=== PATIENT | female | born 1990 ===

== ENCOUNTER → 2024-11-18 | Outpatient (CLI) | payer BC ==
[2024-11-18 09:31] LABS: Urine Bacteria None Seen /hpf (None Seen)
[2024-11-18 10:28] LABS: Basophils # (auto) 0 10 ^3/uL (0-0.2); Basophils % (auto) 0.8 % (0.0-2.0); Eosinophils # (auto) 0 10 ^3/uL (0-0.8); Eosinophils % (auto) 0.9 % (0.0-7.0); Hematocrit 41.9 % (36.0-46.0); Hemoglobin 14.2 g/dL (12.2-16.2); Lymphocytes # (auto) 1.5 10 ^3/uL (0.4-5.4); Lymphocytes % (auto) 33.8 % (10.0-50.0); Mean Corpuscular Hemoglobin 31.6 pg (28.0-32.0); Mean Corpuscular Hgb Conc. 33.9 g/dL (32.0-36.0); Mean Corpuscular Volume 93.4 fL (80.0-100.0); Monocytes # (auto) 0.3 10 ^3/uL (0-1.3); Monocytes % (auto) 5.9 % (0.0-12.0); Neutrophils # (auto) 2.5 10 ^3/uL (1.6-8.6); Neutrophils % (auto) 58.6 % (37.0-80.0); Platelet Count (auto) 256 10^3/uL (140-450); Red Blood Cells 4.48 10^6/uL (4.0-5.20); Red Cell Distribution Width 12.8 % (11.8-14.3); White Blood Cell 4.3 10^3/uL (4.4-10.8)
[2024-11-18 11:05] LABS: Urine Blood 2+ /uL (Negative); Urine Clarity Clear (Clear); Urine Color Yellow (Yellow); Urine Mucus FEW (None Seen); Urine Protein, UAD Negative (Negative); Urine Specific Gravity 1.027 (1.001-1.035); Urine Squamous Epithelial Cell FEW /hpf (<5); Urine Urobilinogen Normal (Negative); Urine WBC 3 /HPF (0-5); Urine pH 5.5 (5.0-9.0)
[2024-11-18 11:10] LABS: Alkaline Phosphatase 50 U/L (46-116); Anion Gap 10 (5-15); Aspartate Aminotransferase 21 U/L (13-40); Blood Urea Nitrogen 17 mg/dL (9-23); Calcium 9.9 mg/dL (8.7-10.4); Carbon Dioxide 26 mmol/L (20-31); Chloride 104 mmol/L (98-107); Magnesium 2.3 mg/dL (1.6-2.6); Potassium 3.9 mmol/L (3.5-5.1); Sodium 140 mmol/L (136-145); Triglycerides 54 mg/dL (< 150)
[2024-11-18 11:11] LABS: Bilirubin, Total 1.1 mg/dL (0.2-1.0); Cholesterol 200 mg/dL (< 200); Total Protein 7.5 g/dL (5.7-8.2)
[2024-11-18 11:12] LABS: Folate (Folic Acid) 21.07 ng/mL (>5.38); HDL Cholesterol 60 mg/dL (40-59)
[2024-11-18 11:13] LABS: Leuteinizing Hormone 6.3 IU/L
[2024-11-18 11:14] LABS: Albumin 5.1 g/dL (3.2-4.8); Ferritin 52.1 ng/mL (10-291); Glucose 83 mg/dL (74-106); LDL Cholesterol 136 mg/dL (< 100); Prolactin 8.46 ng/mL (2.8-29.2)
[2024-11-18 11:25] LABS: Alanine Aminotransferase 21 U/L (7-40)
[2024-11-18 11:34] LABS: Follicle Stimulating Hormone 7.1 IU/L (SEE BELOW)
[2024-11-18 12:01] LABS: Uric Acid 6.3 mg/dL (3.1-7.8)
[2024-11-19 06:06] LABS: RPR Non Reactive (Non Reactive)
[2024-11-19 08:06] LABS: Complement C3 103 mg/dL (82-167); Rheumatoid Arthritis Factor 10.7 IU/mL (<14.0)
[2024-11-19 09:06] LABS: Estradiol 45.5 pg/mL (.); Thyroid Peroxidase (TPO) Ab 11 IU/mL (0-34)
[2024-11-19 12:06] LABS: Anti-Nuclear Antibody Direct Negative (Negative); Anti-dsDNA Antibody 2 IU/mL (0-9); Antiscleroderma-70 Antibody <0.2 AI (0.0-0.9); RNP Antibody 0.2 AI (0.0-0.9); Sjogren's Anti-SS-A Antibody <0.2 AI (0.0-0.9); Sjogren's Anti-SS-B Antibody <0.2 AI (0.0-0.9); Smith Antibody <0.2 AI (0.0-0.9)
[2024-11-19 23:06] LABS: Chlamydia Trachomatis, NAA Negative (Negative); Neisseria gonorrhoeae, NAA Negative (Negative)
== END | disposition home or self-care (01) ==
LOC: LAB 09:05
PROVIDERS: ATTEND Internal Medicine
DX: E61.2 Magnesium deficiency (principal); E55.9 Vitamin D deficiency, unspecified; E78.49 Other hyperlipidemia; E79.0 Hyperuricemia without signs of inflammatory arthritis and tophaceous disease; D51.9 Vitamin B12 deficiency anemia, unspecified; R94.6 Abnormal results of thyroid function studies; R73.09 Other abnormal glucose; R82.998 Other abnormal findings in urine; R68.89 Other general symptoms and signs; R82.90 Unspecified abnormal findings in urine
CPT/HCPCS: 36415; 80053; 80061; 81001; 82306; 82533; 82607; 82670; 82672; 82728; 82746; 83001; 83002; 83036; 83540; 83735; 84146; 84403; 84443; 84550; 85025; 86160; 86225; 86235; 86376; 86431; 86592; 86703; 86780; 87086

== ENCOUNTER → 2024-11-25 | Outpatient (CLI) | payer BC ==
[2024-11-25 09:46] LABS: Erythrocyte Sedimentation Rate 2 mm/hr (0-20)
[2024-11-26 08:06] LABS: Insulin 4.4 uIU/mL (2.6-24.9)
[2024-11-26 12:06] LABS: H. PYLORI UREA BREATH TEST Negative (Negative)
== END | disposition home or self-care (01) ==
LOC: LAB 08:39
PROVIDERS: ATTEND Internal Medicine
DX: Z11.1 Encounter for screening for respiratory tuberculosis (principal); R53.82 Chronic fatigue, unspecified; R79.89 Other specified abnormal findings of blood chemistry; R68.89 Other general symptoms and signs
CPT/HCPCS: 36415; 82626; 82941; 83013; 83525; 85652; 86141